=== PATIENT | male | born 1965 ===

== ENCOUNTER 2022-03-15 12:37 | Emergency (ER) | payer OTHER ==
[2022-03-15 12:58] VITALS: RESP 20; TEMP 98.3; BMI 27.7
[2022-03-15] MEDS ORDERED: ASPIRIN 81 MG CHEWABLE TABLETS PO ONE ×2 (13:29→15:03)
[2022-03-15] MEDS ORDERED: ASPIRIN 81 MG CHEWABLE TABLETS ONE ×2 (13:34→15:12)
[2022-03-15] MEDS ORDERED: NITROGLYCERIN SUBLINGUAL 1/150 0.4 MG TAB SL ONE ×2 (13:39→14:42)
[2022-03-15] MEDS ORDERED: NITROGLYCERIN SUBLINGUAL 1/150 0.4 MG TAB ONE ×2 (13:46→14:47)
[2022-03-15 14:01] LABS: EOS % 0.2 % (0-4.5); HEMATOCRIT 46.1 % (35.4-49); HEMOGLOBIN 15.3 GM/dL (11.7-16.9); LYMPH % 17.3 % (8-40); MCH 27.4 pg (25.7-33.7); MCHC 33.1 g/dl (32.0-35.9); MEAN CELL VOLUME 82.7 fl (80-96); MEAN PLT VOLUME 10.8 fl (7.5-11.1); MONO % 9.3 % (3.8-10.2); NEUT % 72.2 % (42.8-82.8); PLATELET COUNT 203 10^3/uL (134-434); RBC 5.57 M/mm3 (4.00-5.60); RDW 13.7 % (11.9-15.9); WHITE BLOOD COUNT 10.7 K/mm3 (4.0-10.0)
[2022-03-15 14:14] LABS: INR 1.1 (0.83-1.09); PROTHROMBIN TIME (PATIENT) 12.7 SEC (9.7-13.0)
[2022-03-15 14:17] LABS: ACTIVATED PTT 27.1 SECONDS (25.2-36.5)
[2022-03-15 14:31] LABS: CALCIUM 9.2 mg/dL (8.5-10.1)
[2022-03-15 14:33] LABS: ALBUMIN 3.4 g/dl (3.4-5.0); BLOOD UREA NITROGEN 17.4 mg/dL (7-18); MAGNESIUM 1.7 mg/dL (1.8-2.4)
[2022-03-15 14:35] LABS: CREATININE 1.4 mg/dL (0.55-1.3)
[2022-03-15 14:36] LABS: BILIRUBIN,TOTAL 1.1 mg/dL (0.2-1)
[2022-03-15 14:38] LABS: TOT PROT 7.8 g/dl (6.4-8.2)
[2022-03-15 14:41] LABS: N-TERMINAL BNP 475.8 pg/ml (5-125)
[2022-03-15 15:07] VITALS: BP 158/101; PULSE 59
[2022-03-15] MEDS ORDERED: HEPARIN NA (PORCINE) 5,000 UNITS/ML 1ML VIAL IVPUSH PRN ×2 (15:28)
[2022-03-15] MEDS ORDERED: HEPARIN - 25,000 UNIT in SODIUM CHLORIDE 495 ML IV SCH (15:30)
[2022-03-15] MEDS ORDERED: HEPARIN INFUSION - 25,000 UNITS/500 ML INFUS.BAG IVPB ONE (16:00)
[2022-03-15] MEDS ORDERED: TICAGRELOR 60 MG TABLET PO SCH (22:00)
== END 2022-03-15 16:00 | disposition short-term general hospital (02) ==
LOC: JER 12:37
PROC: 3E033GC Introduction of Other Therapeutic Substance into Peripheral Vein, Percutaneous Approach (ICD-10-PCS; principal; 2022-03-15)
DX: I21.4 Non-ST elevation (NSTEMI) myocardial infarction (principal)
CPT/HCPCS: 0241U-QW; 36415; 71045-TC-FY; 80053; 83735; 83880; 84484; 85025; 85610; 85730; 93005; 93010; 99285-25; J1644